=== PATIENT | male | born 1980 | race Caucasian/White ===

== ENCOUNTER 2019-12-21 13:51 | Emergency (ER) | payer OTHER ==
[2019-12-21 14:04] VITALS: RESP 18
[2019-12-21] MEDS ORDERED: KETOROLAC 60 MG/2 ML VIAL IM STA (14:16)
--- NOTE | 2019-12-21 14:16 | ED ---
Extremity Problem HPI - General Chief complaint: Extremity Problem,Nontraumatic Stated complaint: Rt heel pain Time Seen by Provider: 12/21/19 14:08 Source: patient Mode of arrival: ambulatory Limitations: no limitations - History of Present Illness Initial comments: 39-year-old male presenting today for chief complaint of right heel pain he states it is at the center of the heel extending towards the arch he states restenosis to be toes it does not hurt as bad baby steps and is healed there is significant pain. Patient denies any swelling of the feet. Denies numbness, tingling or loss of sensation. Denies calf or leg swelling. Denies injury or trauma to the foot/leg. Patient denies previous injury. Denies redness. Patient has no additional complaints. Upon arrival patient appears well. Patient has been wearing flip flops more than usual. - Related Data Home Medications Medication Instructions Recorded Confirmed Testosterone [Axiron] 1 injection IM CONTINUOUS 02/26/15 08/19/15 Ciprofloxacin HCl [Cipro] 250 mg PO Q12HR 08/19/15 08/19/15 Allergies Allergy/AdvReac Type Severity Reaction Status Date / Time amoxicillin Allergy Rash/Hives Verified 12/21/19 14:01 amoxicillin trihydrate Allergy Unknown Verified 12/21/19 14:01 [From Augmentin] latex Allergy Rash/Hives Verified 12/21/19 14:01 potassium clavulanate Allergy Unknown Verified 12/21/19 14:01 [From Augmentin] sulfamethoxazole Allergy Abdominal Verified 12/21/19 14:01 [From Bactrim] Pain. LIGHT SENSITIVITY. trimethoprim [From Bactrim] Allergy Abdominal Verified 12/21/19 14:01 Pain. LIGHT SENSITIVITY. Review of Systems ROS Statement: Those systems with pertinent positive or pertinent negative responses have been documented in the HPI. ROS Other: All systems not noted in ROS Statement are negative. Past Medical History Past Medical History: No Reported History Additional Past Medical History / Comment(s): ANEMIA History of Any Multi-Drug Resistant Organisms: None Reported Past Surgical History: Orthopedic Surgery Additional Past Surgical History / Comment(s): Nasal, hand surgery Past Psychological History: No Psychological Hx Reported Smoking Status: Never smoker Past Alcohol Use History: None Reported Past Drug Use History: None Reported General Exam - General Exam Comments Initial Comments: General: The patient is awake and alert, in no distress, and does not appear acutely ill. Eye: Pupils are equal, round and reactive to light, extra-ocular movements are intact. No nystagmus. There is normal conjunctiva bilaterally. No signs of icterus. Musculoskeletal: Normal inspection of the feet b/l, there is tenderness over the medial aspect of arch. Normal ROM, of the foot and ankle. Achilles tendon appears intact. Strength 5/5. Sensation intact. DP pulses equal bilaterally 2+. Neurological: A&O x 3. CN II-XII intact grossly, There are no obvious motor or sensory deficits. Coordination appears grossly intact. Speech is normal. Skin: Skin is warm and dry and no rashes or lesions are noted. Psychiatric: Cooperative, appropriate mood & affect, normal judgment. Limitations: no limitations Course Vital Signs 12/21/19 14:01 Temperature 98.3 F Pulse Rate 79 Respiratory 18 Rate Blood Pressure 143/94 O2 Sat by Pulse 97 Oximetry Medical Decision Making - Medical Decision Making Area of pain and history of increase use of flat footed shoes consistent with most likely diagnosis of plantar fasciitis. No trauma to the foot. patient neurovascuarly intact. recommend RICE instruction and PCP f/u. Patient is agreeable to this care plan and discharge at this time. Disposition Clinical Impression: Pain of right heel, Plantar fasciitis Disposition: HOME SELF-CARE Condition: Good Instructions (If sedation given, give patient instructions): Plantar Fasciitis (ED) Additional Instructions: Please use medication as discussed. Please follow-up with family doctor in the next 2 days. Please return to emergency room if the symptoms increase or worsen or for any other concerns. Is patient prescribed a controlled substance at d/c from ED?: No Referrals: Coy Gupta MD [Primary Care Provider] - 1-2 days Time of Disposition: 14:16
[2019-12-21 14:35] VITALS: BP 139/87; PULSE 81; TEMP 98.2
== END 2019-12-21 14:33 | disposition home or self-care (01) ==
LOC: EC 13:51
DX: M72.2 Plantar fascial fibromatosis (principal); Z79.890 Hormone replacement therapy; Z88.0 Allergy status to penicillin; Z91.040 Latex allergy status; Z88.2 Allergy status to sulfonamides
CPT/HCPCS: 99283; 96372; J1885

== ENCOUNTER 2020-04-19 22:50 | Emergency (ER) | payer OTHER ==
[2020-04-19 22:56] VITALS: RESP 16
[2020-04-19] MEDS ORDERED: SODIUM CHLORIDE 0.9% 1,000 ML IV STA (23:18)
[2020-04-19] MEDS ORDERED: ACETAMINOPHEN TAB 500 MG TAB PO STA (23:18)
[2020-04-19 23:45] LABS: Basophils # (A) 0.1 k/uL (0-0.2); Basophils % (A) 1 %; Eosinophils # (A) 0.1 k/uL (0-0.7); Eosinophils % (A) 1 %; HCT 48.7 % (39.0-53.0); HGB 16.4 gm/dL (13.0-17.5); Lymphocytes # (A) 1.9 k/uL (1.0-4.8); Lymphocytes % (A) 22 %; MCH 30.6 pg (25.0-35.0); MCHC 33.7 g/dL (31.0-37.0); Mean Platelet Volume 10.3; Monocytes # (A) 0.5 k/uL (0-1.0); Monocytes % (A) 6 %; Neutrophils # (A) 5.7 k/uL (1.3-7.7); Neutrophils % (A) 68 %; Platelet Count 210 k/uL (150-450); RBC 5.36 m/uL (4.30-5.90); RDW 12.6 % (11.5-15.5); WBC 8.3 k/uL (3.8-10.6)
[2020-04-19 23:49] LABS: Appearance,Urine Clear (Clear); Bilirubin,Urine Negative (Negative); Blood,Urine Negative (Negative); Color,Urine Yellow; Glucose,Urine (UA) Negative (Negative); Ketones,Urine 1+ (Negative); Leukocyte Esterase,Urine Negative (Negative); Nitrite,Urine Negative (Negative); PH, Urine 5.5 (5.0-8.0); Protein,Urine Negative (Negative); Specific Gravity,Urine 1.016 (1.001-1.035); Urobilinogen,Urine <2.0 mg/dL (<2.0)
--- NOTE | 2020-04-20 00:01 | XR ---
EXAMINATION TYPE: XR chest 2V DATE OF EXAM: 04/19/2020 COMPARISON: NONE HISTORY: Short of breath TECHNIQUE: FINDINGS: Heart and mediastinum are normal. Lungs are clear. Diaphragm is normal. Bony thorax appears normal. IMPRESSION: Normal chest.
[2020-04-20 00:10] LABS: ALT 54 U/L (4-49); AST 41 U/L (17-59); African American GFR (CKD) >90 (>60 ml/min/1.73 sqM); Albumin 5.2 g/dL (3.5-5.0); Alkaline Phosphatase 92 U/L (38-126); Anion Gap 11 mmol/L; Blood Urea Nitrogen 12 mg/dL (9-20); Calcium 10.3 mg/dL (8.4-10.2); Carbon Dioxide 23 mmol/L (22-30); Chloride 101 mmol/L (98-107); Glucose 104 mg/dL (74-99); Lipase 100 U/L (23-300); Magnesium 2.1 mg/dL (1.6-2.3); Non-African American GFR(CKD) >90 (>60 ml/min/1.73 sqM); Potassium 4.2 mmol/L (3.5-5.1); Sodium 135 mmol/L (137-145); Total Bilirubin 1.2 mg/dL (0.2-1.3); Total Protein 8.4 g/dL (6.3-8.2)
--- NOTE | 2020-04-20 00:40 | ED ---
Dizziness HPI - General Chief Complaint: Dizziness Stated Complaint: Abd Pain, Dizziness Time Seen by Provider: 04/19/20 22:59 Source: patient Mode of arrival: ambulatory Limitations: no limitations - History of Present Illness Initial Comments: Patient is a 40-year-old male presenting to the emergency Department with multiple complaints. Patient states he has been feeling lightheaded as well is having some nausea has been increasing over the past 3-4 days. He states his appetite has also been low and he feels like his legs are heavy. He states he was seen for this at a different hospital a few weeks ago and they told him his potassium was low. Patient is also complaining of "a weird feeling in the left side of his abdomen." He states it is not painful, he is having no vomiting. He has had one or 2 episodes the diarrhea. He is not on any new medications. He denies having a fever but states that today at arrival he does have a fever n ow. He denies any chest pain, shortness of breath. He denies any falls or trauma. He has no further complaints at this time. Upon arrival to the ER, his temperature is 100.2, blood pressures 156/111. He states he is supposed to take blood pressure medication but does not. - Related Data Home Medications Medication Instructions Recorded Confirmed Testosterone [Axiron] 1 injection IM CONTINUOUS 02/26/15 08/19/15 Ciprofloxacin HCl [Cipro] 250 mg PO Q12HR 08/19/15 08/19/15 Allergies Allergy/AdvReac Type Severity Reaction Status Date / Time amoxicillin Allergy Rash/Hives Verified 04/19/20 22:56 ciprofloxacin [From Cipro] Allergy Unknown Verified 04/19/20 22:56 latex Allergy Rash/Hives Verified 04/19/20 22:56 sulfamethoxazole Allergy Abdominal Verified 04/19/20 22:56 [From Bactrim] Pain. LIGHT SENSITIVITY. trimethoprim [From Bactrim] Allergy Abdominal Verified 04/19/20 22:56 Pain. LIGHT SENSITIVITY. Review of Systems ROS Statement: Those systems with pertinent positive or pertinent negative responses have been documented in the HPI. ROS Other: All systems not noted in ROS Statement are negative. Past Medical History Past Medical History: No Reported History Additional Past Medical History / Comment(s): ANEMIA History of Any Multi-Drug Resistant Organisms: None Reported Past Surgical History: Orthopedic Surgery Additional Past Surgical History / Comment(s): Nasal, hand surgery Past Psychological History: No Psychological Hx Reported Smoking Status: Never smoker Past Alcohol Use History: Occasional Past Drug Use History: None Reported General Exam - General Exam Comments Initial Comments: GENERAL: Patient is well-developed and well-nourished. Patient is nontoxic and in no acute distress, does look slightly diaphoretic.. HEAD: Atraumatic, normocephalic. EYES: Pupils equal round and reactive to light, extraocular movements intact, sclera anicteric, conjunctiva are normal. Eyelids were unremarkable. ENT: TMs normal, nares patent, oropharynx clear without exudates. Moist mucous membranes. NECK: Normal range of motion, supple without lymphadenopathy or JVD. LUNGS: Unlabored respirations. Breath sounds clear to auscultation bilaterally and equal. No wheezes rales or rhonchi. HEART: Regular rate and rhythm without murmurs, rubs or gallops. ABDOMEN: Soft, nontender, normoactive bowel sounds. No guarding, no rebound. No masses appreciated. : Deferred MUSCULOSKELETAL: Normal extremities with adequate strength and normal range of motion, no pitting or edema. No clubbing or cyanosis. NEUROLOGICAL: Patient is alert and oriented x 3. Motor and sensory are also intact. Cranial nerves II through XII grossly intact. Symmetrical smile. Normal speech, normal gait. PSYCH: Normal mood, normal affect. SKIN: Warm, Dry, normal turgor, no rashes or lesions noted. Limitations: no limitations Course Vital Signs 04/19/20 04/20/20 22:52 00:50 Temperature 100.2 F H 98.1 F Pulse Rate 98 81 Respiratory 16 16 Rate Blood Pressure 156/111 131/81 O2 Sat by Pulse 100 100 Oximetry Medical Decision Making - Medical Decision Making Patient is a 40-year-old male here for dizziness, nausea has been increasing ove r the past 3-4 days. He did arrive febrile to 100.2. His exam is unremarkable. Labs show a normal white count, normal lactic acid, mild dehydration. Urine is normal. To give patient 1 L fluids, Tylenol. His vital signs stabilized. Discussed with patient that his symptoms are most likely a viral illness. I did offer patient a Covid Test, however he declined at this time. He is stable for discharge. Recommended continue with Tylenol for fever, he can follow up with his PCP. He is in agreement with this plan of care. Return parameters were discussed the patient he verbalizes understanding. Case discussed with Dr. Duque. - Lab Data Result diagrams: 04/19/20 23:30 04/19/20 23:30 Lab Results 04/19/20 04/19/20 04/19/20 Range/Units 23:29 23:30 23:30 WBC 8.3 (3.8-10.6) k/uL RBC 5.36 (4.30-5.90) m/uL Hgb 16.4 (13.0-17.5) gm/dL Hct 48.7 (39.0-53.0) % MCV 91.0 (80.0-100.0) fL MCH 30.6 (25.0-35.0) pg MCHC 33.7 (31.0-37.0) g/dL RDW 12.6 (11.5-15.5) % Plt Count 210 (150-450) k/uL Neutrophils % 68 % Lymphocytes % 22 % Monocytes % 6 % Eosinophils % 1 % Basophils % 1 % Neutrophils # 5.7 (1.3-7.7) k/uL Lymphocytes # 1.9 (1.0-4.8) k/uL Monocytes # 0.5 (0-1.0) k/uL Eosinophils # 0.1 (0-0.7) k/uL Basophils # 0.1 (0-0.2) k/uL Sodium 135 L (137-145) mmol/L Potassium 4.2 (3.5-5.1) mmol/L Chloride 101 (98-107) mmol/L Carbon Dioxide 23 (22-30) mmol/L Anion Gap 11 mmol/L BUN 12 (9-20) mg/dL Creatinine 0.95 (0.66-1.25) mg/dL Est GFR (CKD-EPI)AfAm >90 (>60 ml/min/1.73 sqM) Est GFR (CKD-EPI)NonAf >90 (>60 ml/min/1.73 sqM) Glucose 104 H (74-99) mg/dL Plasma Lactic Acid Christopher (0.7-2.0) mmol/L Calcium 10.3 H (8.4-10.2) mg/dL Magnesium 2.1 (1.6-2.3) mg/dL Total Bilirubin 1.2 (0.2-1.3) mg/dL AST 41 (17-59) U/L ALT 54 H (4-49) U/L Alkaline Phosphatase 92 (38-126) U/L Total Protein 8.4 H (6.3-8.2) g/dL Albumin 5.2 H (3.5-5.0) g/dL Lipase 100 (23-300) U/L Urine Color Yellow Urine Appearance Clear (Clear) Urine pH 5.5 (5.0-8.0) Ur Specific [place] 1.016 (1.001-1.035) Urine Protein Negative (Negative) Urine Glucose (UA) Negative (Negative) Urine Ketones 1+ H (Negative) Urine Blood Negative (Negative) Urine Nitrite Negative (Negative) Urine Bilirubin Negative (Negative) Urine Urobilinogen <2.0 (<2.0) mg/dL Ur Leukocyte Esterase Negative (Negative) 04/19/20 Range/Units 23:30 WBC (3.8-10.6) k/uL RBC (4.30-5.90) m/uL Hgb (13.0-17.5) gm/dL Hct (39.0-53.0) % MCV (80.0-100.0) fL MCH (25.0-35.0) pg MCHC (31.0-37.0) g/dL RDW (11.5-15.5) % Plt Count (150-450) k/uL Neutrophils % % Lymphocytes % % Monocytes % % Eosinophils % % Basophils % % Neutrophils # (1.3-7.7) k/uL Lymphocytes # (1.0-4.8) k/uL Monocytes # (0-1.0) k/uL Eosinophils # (0-0.7) k/uL Basophils # (0-0.2) k/uL Sodium (137-145) mmol/L Potassium (3.5-5.1) mmol/L Chloride (98-107) mmol/L Carbon Dioxide (22-30) mmol/L Anion Gap mmol/L BUN (9-20) mg/dL Creatinine (0.66-1.25) mg/dL Est GFR (CKD-EPI)AfAm (>60 ml/min/1.73 sqM) Est GFR (CKD-EPI)NonAf (>60 ml/min/1.73 sqM) Glucose (74-99) mg/dL Plasma Lactic Acid Christopher 1.4 (0.7-2.0) mmol/L Calcium (8.4-10.2) mg/dL Magnesium (1.6-2.3) mg/dL Total Bilirubin (0.2-1.3) mg/dL AST (17-59) U/L ALT (4-49) U/L Alkaline Phosphatase (38-126) U/L Total Protein (6.3-8.2) g/dL Albumin (3.5-5.0) g/dL Lipase (23-300) U/L Urine Color Urine Appearance (Clear) Urine pH (5.0-8.0) Ur Specific [place] (1.001-1.035) Urine Protein (Negative) Urine Glucose (UA) (Negative) Urine Ketones (Negative) Urine Blood (Negative) Urine Nitrite (Negative) Urine Bilirubin (Negative) Urine Urobilinogen (<2.0) mg/dL Ur Leukocyte Esterase (Negative) Disposition Clinical Impression: Viral illness, Nausea Disposition: HOME SELF-CARE Condition: Stable Instructions (If sedation given, give patient instructions): Viral Syndrome (ED) Additional Instructions: Please return to the Emergency Department if symptoms worsen or any other concerns. Workup today was normal, mild dehydration. May take Tylenol for continued fever. Increased fluid intake. Follow up with PCP. Is patient prescribed a controlled substance at d/c from ED?: No Referrals: Coy Gupta MD [Primary Care Provider] - 1-2 days
[2020-04-20 00:51] VITALS: BP 131/81; PULSE 81; TEMP 98.1
== END 2020-04-20 01:20 | disposition home or self-care (01) ==
LOC: EC 22:50
DX: B34.9 Viral infection, unspecified (principal); R11.0 Nausea; Z53.29 Procedure and treatment not carried out because of patient's decision for other reasons; Z88.0 Allergy status to penicillin; Z88.1 Allergy status to other antibiotic agents; Z88.2 Allergy status to sulfonamides; Z91.040 Latex allergy status
CPT/HCPCS: 36415; 71046; 80053; 81003; 83605; 83690; 83735; 85025; 96360; 99284

== ENCOUNTER → 2020-07-23 | Outpatient (CLI) | payer OTHER | END | disposition home or self-care (01) | LOC: LABWHC1 12:24 | PROVIDERS: ATTEND Psychiatry & Neurology Neurology | DX: E29.1 Testicular hypofunction (principal); R53.1 Weakness; R20.0 Anesthesia of skin; R20.2 Paresthesia of skin | CPT/HCPCS: 36415; 84207 ==

== ENCOUNTER → 2020-08-11 | Outpatient (CLI) | payer OTHER ==
--- NOTE | 2020-08-11 16:57 | CT ---
EXAMINATION TYPE: CT sinus wo con DATE OF EXAM: 08/11/2020 COMPARISON: CT 01/16/2015 HISTORY: chronic sinusitis CT DLP: 648 mGycm. Automated Exposure Control for Dose Reduction was Utilized. TECHNIQUE: CT scan of the sinuses is performed without contrast, axial images are obtained, coronal r eformatted images are also reviewed. FINDINGS: The paranasal sinuses including the frontal, ethmoid, sphenoid, and maxillary sinuses bila terally are well-aerated without abnormal opacification with the exception of minimal inflammatory ch moshe in the sphenoid sinus on the left is stable. The ostiomeatal complex is patent bilaterally on t he coronal images. Deviated nasal septum to the right is again seen, metallic density in the subcutan eous fat over the left frontal scalp superior to the left orbit is stable. Visualized portion of mastoid air cells show no abnormal opacification. The globes are intact bilate rally. IMPRESSION: The sinuses are stable as described and the ostiomeatal complex is patent bilaterally.
== END | disposition home or self-care (01) ==
LOC: RADCTMAIN 15:46
PROVIDERS: ATTEND Otolaryngology Facial Plastic Surgery
DX: R51.9 Headache, unspecified (principal)
CPT/HCPCS: 70486

== ENCOUNTER 2020-09-06 23:20 | Emergency (ER) | payer OTHER ==
[2020-09-06 23:24] VITALS: RESP 18
[2020-09-07] MEDS ORDERED: SODIUM CHLORIDE 0.9% 1,000 ML IV STA (00:02)
--- NOTE | 2020-09-07 00:04 | ED ---
Weakness HPI - General Chief complaint: Dizziness Stated complaint: Leg Numbness Time Seen by Provider: 09/06/20 23:30 Source: patient, RN notes reviewed, old records reviewed Mode of arrival: ambulatory Limitations: no limitations - History of Present Illness Initial comments: This is a 32-year-old male DF for evaluation patient Dese for evaluation of weakness bilateral lower extremity weakness. Patient has persistent lower extremity weakness tingling and not feeling appropriately here in the ER no recent injury symptoms for 3 days. No issues of bowel or bladder, patient has otherwise no other new significant complaints. He has had similar issues in the past without known acute disease a diagnosis. Patient does have high blood pressure but takes no other medications MD Complaint: generalized weakness, difficulty walking -: days(s) (3) Location: LLE, RLE Severity: mild Severity scale (1-10): 3 Quality: numbness, aching Consistency: constant Improves with: none Worsens with: none Context: history of similar Associated Symptoms: denies other symptoms - Related Data Home Medications Medication Instructions Recorded Confirmed Testosterone [Axiron] 1 injection IM CONTINUOUS 02/26/15 08/19/15 Ciprofloxacin HCl [Cipro] 250 mg PO Q12HR 08/19/15 08/19/15 Allergies Allergy/AdvReac Type Severity Reaction Status Date / Time amoxicillin Allergy Rash/Hives Verified 09/06/20 23:23 ciprofloxacin [From Cipro] Allergy Unknown Verified 09/06/20 23:23 latex Allergy Rash/Hives Verified 09/06/20 23:23 sulfamethoxazole Allergy Abdominal Verified 09/06/20 23:23 [From Bactrim] Pain. LIGHT SENSITIVITY. trimethoprim [From Bactrim] Allergy Abdominal Verified 09/06/20 23:23 Pain. LIGHT SENSITIVITY. Review of Systems ROS Statement: Those systems with pertinent positive or pertinent negative responses have been documented in the HPI. ROS Other: All systems not noted in ROS Statement are negative. Past Medical History Past Medical History: No Reported History Additional Past Medical History / Comment(s): ANEMIA History of Any Multi-Drug Resistant Organisms: None Reported Past Surgical History: Orthopedic Surgery Additional Past Surgical History / Comment(s): Nasal, hand surgery Past Psychological History: No Psychological Hx Reported Smoking Status: Never smoker Past Alcohol Use History: Occasional Past Drug Use History: None Reported General Exam - General Exam Comments Initial Comments: NIH of 0 with no focal neurological deficits Limitations: no limitations General appearance: alert, in no apparent distress Head exam: Present: atraumatic, normocephalic, normal inspection Eye exam: Present: normal appearance, PERRL, EOMI. Absent: scleral icterus, conjunctival injection, periorbital swelling ENT exam: Present: normal exam, mucous membranes moist Neck exam: Present: normal inspection. Absent: tenderness, meningismus, lymphadenopathy Respiratory exam: Present: normal lung sounds bilaterally. Absent: respiratory distress, wheezes, rales, rhonchi, stridor Cardiovascular Exam: Present: regular rate, normal rhythm, normal heart sounds. Absent: systolic murmur, diastolic murmur, rubs, gallop, clicks GI/Abdominal exam: Present: soft, normal bowel sounds. Absent: distended, tenderness, guarding, rebound, rigid Extremities exam: Present: normal inspection, full ROM, normal capillary refill. Absent: tenderness, pedal edema, joint swelling, calf tenderness Back exam: Present: normal inspection Neurological exam: Present: alert, oriented X3, CN II-XII intact Psychiatric exam: Present: normal affect, normal mood Skin exam: Present: warm, dry, intact, normal color. Absent: rash Course Vital Signs 09/06/20 23:22 Temperature 98.5 F Pulse Rate 101 H Respiratory 18 Rate Blood Pressure 143/84 O2 Sat by Pulse 98 Oximetry - Reevaluation(s) Reevaluation #1: 09/07/20 01:50 Medical record is reviewed Reevaluation #2: 09/07/20 01:50 Patient is able to ambulate 09/07/20 01:51 Repeat neuro exam shows good strength Reevaluation #3: 09/07/20 01:51 Patient informed of results and questions answered EKG Findings - EKG Comments: EKG Findings:: EKG shows sinus rhythm 80 TX 138 QRS 104 QTc 452 Medical Decision Making - Medical Decision Making 40 male for evaluation of weakness. No acute cause found of symptoms here in the ER. Patient given outpatient follow-up for his primary care possible referral [facility] a neurological evaluation - Lab Data Result diagrams: 09/07/20 00:12 09/07/20 00:12 Lab Results 09/07/20 09/07/20 09/07/20 Range/Units 00:12 00:12 00:12 WBC 9.1 (3.8-10.6) k/uL RBC 5.18 (4.30-5.90) m/uL Hgb 15.6 (13.0-17.5) gm/dL Hct 46.9 (39.0-53.0) % MCV 90.5 (80.0-100.0) fL MCH 30.1 (25.0-35.0) pg MCHC 33.3 (31.0-37.0) g/dL RDW 12.2 (11.5-15.5) % Plt Count 221 (150-450) k/uL MPV 9.5 Neutrophils % 63 % Lymphocytes % 26 % Monocytes % 6 % Eosinophils % 3 % Basophils % 1 % Neutrophils # 5.7 (1.3-7.7) k/uL Lymphocytes # 2.4 (1.0-4.8) k/uL Monocytes # 0.6 (0-1.0) k/uL Eosinophils # 0.3 (0-0.7) k/uL Basophils # 0.1 (0-0.2) k/uL D-Dimer (<0.60) mg/L FEU Sodium 140 (137-145) mmol/L Potassium 4.3 (3.5-5.1) mmol/L Chloride 104 (98-107) mmol/L Carbon Dioxide 28 (22-30) mmol/L Anion Gap 8 mmol/L BUN 16 (9-20) mg/dL Creatinine 0.84 (0.66-1.25) mg/dL Est GFR (CKD-EPI)AfAm >90 (>60 ml/min/1.73 sqM) Est GFR (CKD-EPI)NonAf >90 (>60 ml/min/1.73 sqM) Glucose 87 (74-99) mg/dL Calcium 10.0 (8.4-10.2) mg/dL Phosphorus 3.5 (2.5-4.5) mg/dL Magnesium 2.1 (1.6-2.3) mg/dL Total Bilirubin 0.6 (0.2-1.3) mg/dL AST 37 (17-59) U/L ALT 58 H (4-49) U/L Alkaline Phosphatase 83 (38-126) U/L Creatine Kinase 80 (55-170) U/L CK-MB (CK-2) <0.2 (0.0-2.4) ng/mL Troponin I <0.012 (0.000-0.034) ng/mL C-Reactive Protein 12.2 H (<10.0) mg/L Total Protein 8.1 (6.3-8.2) g/dL Albumin 4.9 (3.5-5.0) g/dL 09/07/20 Range/Units 00:12 WBC (3.8-10.6) k/uL RBC (4.30-5.90) m/uL Hgb (13.0-17.5) gm/dL Hct (39.0-53.0) % MCV (80.0-100.0) fL MCH (25.0-35.0) pg MCHC (31.0-37.0) g/dL RDW (11.5-15.5) % Plt Count (150-450) k/uL MPV Neutrophils % % Lymphocytes % % Monocytes % % Eosinophils % % Basophils % % Neutrophils # (1.3-7.7) k/uL Lymphocytes # (1.0-4.8) k/uL Monocytes # (0-1.0) k/uL Eosinophils # (0-0.7) k/uL Basophils # (0-0.2) k/uL D-Dimer 0.35 (<0.60) mg/L FEU Sodium (137-145) mmol/L Potassium (3.5-5.1) mmol/L Chloride (98-107) mmol/L Carbon Dioxide (22-30) mmol/L Anion Gap mmol/L BUN (9-20) mg/dL Creatinine (0.66-1.25) mg/dL Est GFR (CKD-EPI)AfAm (>60 ml/min/1.73 sqM) Est GFR (CKD-EPI)NonAf (>60 ml/min/1.73 sqM) Glucose (74-99) mg/dL Calcium (8.4-10.2) mg/dL Phosphorus (2.5-4.5) mg/dL Magnesium (1.6-2.3) mg/dL Total Bilirubin (0.2-1.3) mg/dL AST (17-59) U/L ALT (4-49) U/L Alkaline Phosphatase (38-126) U/L Creatine Kinase (55-170) U/L CK-MB (CK-2) (0.0-2.4) ng/mL Troponin I (0.000-0.034) ng/mL C-Reactive Protein (<10.0) mg/L Total Protein (6.3-8.2) g/dL Albumin (3.5-5.0) g/dL - Radiology Data Radiology results: report reviewed (CT abdomen and pelvis and lumbosacral spine negative for acute disease), image reviewed Disposition Clinical Impression: Weakness, Leg pain Disposition: [facility] Condition: Good Instructions (If sedation given, give patient instructions): Weakness (ED) Is patient prescribed a controlled substance at d/c from ED?: No Referrals: Coy Gupta MD [Primary Care Provider] - 1-2 days
[2020-09-07 00:41] LABS: Basophils # (A) 0.1 k/uL (0-0.2); Basophils % (A) 1 %; Eosinophils # (A) 0.3 k/uL (0-0.7); Eosinophils % (A) 3 %; HCT 46.9 % (39.0-53.0); HGB 15.6 gm/dL (13.0-17.5); Lymphocytes # (A) 2.4 k/uL (1.0-4.8); Lymphocytes % (A) 26 %; MCH 30.1 pg (25.0-35.0); MCHC 33.3 g/dL (31.0-37.0); MCV 90.5 fL (80.0-100.0); Mean Platelet Volume 9.5; Monocytes # (A) 0.6 k/uL (0-1.0); Monocytes % (A) 6 %; Neutrophils # (A) 5.7 k/uL (1.3-7.7); Neutrophils % (A) 63 %; Platelet Count 221 k/uL (150-450); RBC 5.18 m/uL (4.30-5.90); RDW 12.2 % (11.5-15.5); WBC 9.1 k/uL (3.8-10.6)
--- NOTE | 2020-09-07 00:56 | CT ---
EXAMINATION TYPE: CT abdomen pelvis wo con DATE OF EXAM: 09/07/2020 COMPARISON: 08/01/2014 HISTORY: pain CT DLP: 1270.4 mGycm Automated exposure control for dose reduction was used. Images obtained from the diaphragm to the floor the pelvis with no contrast. Lung bases are clear. There is no pleural effusion. Heart size is normal. Liver spleen stomach pancreas appear normal. Bile ducts are not dilated. Gallbladder appears normal. There is no adrenal mass. Kidneys show normal size and contour. There is no hydronephrosis. Ureters a re not dilated. Appendix is posterior and appears normal. There is no retroperitoneal adenopathy. Roland dder distends smoothly. There is no inguinal hernia. There is no free fluid in the pelvis. There is no sign of a pelvic mass. There is no mesenteric edema. There is no ascites or free air. There is no bowel obstruction. Lumbar vertebra have normal alignment. Disc spaces are fairly normal. There is no compression fractur e. Bony pelvis is intact. The hip joints are intact. IMPRESSION: Negative exam. Normal appendix. No adverse change compared to old exam. There is clearing of the righ t renal calculus compared to old exam.
[2020-09-07 01:16] LABS: ALT 58 U/L (4-49); AST 37 U/L (17-59); African American GFR (CKD) >90 (>60 ml/min/1.73 sqM); Albumin 4.9 g/dL (3.5-5.0); Alkaline Phosphatase 83 U/L (38-126); Anion Gap 8 mmol/L; Blood Urea Nitrogen 16 mg/dL (9-20); C Reactive Protein 12.2 mg/L (<10.0); Carbon Dioxide 28 mmol/L (22-30); Chloride 104 mmol/L (98-107); Creatine Kinase 80 U/L (55-170); Glucose 87 mg/dL (74-99); Magnesium 2.1 mg/dL (1.6-2.3); Non-African American GFR(CKD) >90 (>60 ml/min/1.73 sqM); Phosphorus 3.5 mg/dL (2.5-4.5); Potassium 4.3 mmol/L (3.5-5.1); Sodium 140 mmol/L (137-145); Total Bilirubin 0.6 mg/dL (0.2-1.3); Total Protein 8.1 g/dL (6.3-8.2)
[2020-09-07 01:31] LABS: Creatine Kinase MB <0.2 ng/mL (0.0-2.4); Troponin I <0.012 ng/mL (0.000-0.034)
[2020-09-07 02:38] VITALS: BP 139/82; PULSE 95; TEMP 98.2
== END 2020-09-07 02:38 | disposition other institution (70) ==
LOC: EC 23:20
DX: R53.1 Weakness (principal); M79.606 Pain in leg, unspecified; R20.0 Anesthesia of skin; R20.2 Paresthesia of skin; R42 Dizziness and giddiness; R26.2 Difficulty in walking, not elsewhere classified; D64.9 Anemia, unspecified; Z79.899 Other long term (current) drug therapy; Z88.0 Allergy status to penicillin; Z91.040 Latex allergy status; Z88.1 Allergy status to other antibiotic agents; Z88.2 Allergy status to sulfonamides; Z87.442 Personal history of urinary calculi
CPT/HCPCS: 36415; 74176; 80053; 82550; 82553; 83735; 84100; 84484; 85025; 85379; 86140; 93005; 99285

== ENCOUNTER 2020-12-27 14:51 | Emergency (ER) | payer OTHER ==
[2020-12-27 15:13] VITALS: TEMP 97.9
--- NOTE | 2020-12-27 15:17 | ED ---
General Adult HPI - General Chief complaint: Neuro Symptoms/Deficit Stated complaint: L arm & leg numbness Time Seen by Provider: 12/27/20 15:15 Source: patient Mode of arrival: wheelchair Limitations: no limitations - History of Present Illness Initial comments: Yo is a 40-year-old male who presents to the emergency department today for evaluation of headache and left arm numbness. Patient reports that symptoms began yesterday, he attempted to sleep off the headache but it persisted today. He also states that he feels like his arm is heavy, not working right and feels numb. He states his sensation just feels different in the left arm the right. He denies any vision changes, nausea or vomiting. Denies any history of hypertension hyperlipidemia. Initially patient denied any history of anything similar however after agreeing to be admitted hospital patient provided further history that symptoms began in April after being treated for URI with referral. Patient states that he began experiencing headaches, chest pain, palpitations and numbness in the lower extremities. Patient has been seen by 3 neurologists he has had MRI of the brain and cervical spine and lumbar spine. He has had EMGs the legs. He's also been seen by cardiology and had cardiac monitoring, echo and carotid Dopplers. Patient states is been no findings in his workup. He states that he came to the ER today because he usually goes numb in all extremities at the same time or just legs never just the arm or just the left side like he was feeling since . - Related Data Home Medications Medication Instructions Recorded Confirmed Testosterone Cypionate 200 mg IM Q14D 12/27/20 12/27/20 [Depo-Testosterone] Allergies Allergy/AdvReac Type Severity Reaction Status Date / Time amoxicillin Allergy Rash/Hives Verified 12/27/20 17:22 ciprofloxacin [From Cipro] Allergy Unknown Verified 12/27/20 17:22 latex Allergy Rash/Hives Verified 12/27/20 17:22 sulfamethoxazole Allergy Abdominal Verified 12/27/20 17:22 [From Bactrim] Pain. LIGHT SENSITIVITY. trimethoprim [From Bactrim] Allergy Abdominal Verified 12/27/20 17:22 Pain. LIGHT SENSITIVITY. Review of Systems ROS Statement: Those systems with pertinent positive or pertinent negative responses have been documented in the HPI. ROS Other: All systems not noted in ROS Statement are negative. Past Medical History Past Medical History: No Reported History Additional Past Medical History / Comment(s): ANEMIA History of Any Multi-Drug Resistant Organisms: None Reported Past Surgical History: Orthopedic Surgery Additional Past Surgical History / Comment(s): Nasal, hand surgery Past Psychological History: No Psychological Hx Reported Smoking Status: Never smoker Past Alcohol Use History: Occasional Past Drug Use History: None Reported General Exam - General Exam Comments Initial Comments: Physical Exam GENERAL: Patient is well-developed and well-nourished. Patient is nontoxic and well-hydrated and is in no distress. HENT: Normocephalic, Atraumatic. EYES: PERRL, EOMI PULMONARY: Unlabored respirations. No audible rales rhonchi or wheezing was noted. CARDIOVASCULAR: There is a regular rate and rhythm without any murmurs gallops or rubs. ABDOMEN: Soft and nontender with normal bowel sounds. SKIN: Skin is clear with no lesions or rashes and otherwise unremarkable. : Deferred NEUROLOGIC: Patient is alert and oriented x3. Moving all extremities spontaneously NIH 1 subjective change in sensation left arm MUSCULOSKELETAL: Normal extremities with adequate strength and full range of motion. No lower extremity swelling or edema. No calf tenderness. No observable weakness in left arm or leg PSYCHIATRIC: Normal psychiatric evaluation. Limitations: no limitations Course Vital Signs 12/27/20 12/27/20 12/27/20 15:10 16:00 17:20 Temperature 97.9 F 97.9 F Pulse Rate 88 87 83 Respiratory 16 18 18 Rate Blood Pressure 169/95 135/74 140/83 O2 Sat by Pulse 97 99 99 Oximetry 12/27/20 12/27/20 12/27/20 17:33 18:02 18:32 Temperature Pulse Rate 84 96 96 Respiratory 18 18 18 Rate Blood Pressure 134/87 142/94 146/80 O2 Sat by Pulse 99 95 95 Oximetry 12/27/20 12/27/20 19:01 19:29 Temperature 97.9 F Pulse Rate 98 84 Respiratory 18 18 Rate Blood Pressure 155/99 132/91 O2 Sat by Pulse 95 95 Oximetry EKG Findings - EKG Comments: EKG Findings:: EKG was obtained as part of the stroke workup, EKG was obtained at 1520, rate is 81 rhythm sinus with right bundle branch block, no acute ST elevations or depressions no evidence of ischemia or infarction. Medical Decision Making - Medical Decision Making The patient was seen and evaluated, history is obtained from the patient and at bedside Initially patient reported numbness in the left arm and leg since yesterday with no history of such however after negative workup and plan for admission patient expressed that he has been experiencing numbness since April, he's been seen by multiple neurologists, back tender fourdrinier he has had MRIs carotid Doppler echo and EMGs Patient was willing to stay in observation for evaluation inpatient by neurology however he is not willing to have a COVID swab and this time. Patient understands that with a change in condition and new weakness in the arm he should stay as he could be having a stroke, however considering he has experienced similar symptoms repeatedly he would prefer to leave The patient has decided to leave against medical advice because he doesnt want a COVID swab, he doesnt feel his symptoms are acute The patient has adequate capacity to make medical decisions. The patient refuses hospital admission and wants to be discharged. The risks have been explained to the patient, including paralysis worsening illness, chronic pain, permanent disability and . The benefits of workup/admission have also been explained, including the availability and proximity of nurses, physicians, monitoring, diagnostic testing, treatment and inpatient neurology evaluation The patient was able to understand and state the risks and benefits of hospital admission. The patient the opportunity to ask questions about their medical condition. The patient was treated to the extent that they would allow and knows that they may return for care at any time. - Lab Data Result diagrams: 12/27/20 15:33 12/27/20 15:33 Lab Results 12/27/20 12/27/20 12/27/20 Range/Units 15:33 15:33 15:33 WBC 7.2 (3.8-10.6) k/uL RBC 5.49 (4.30-5.90) m/uL Hgb 16.6 (13.0-17.5) gm/dL Hct 47.7 (39.0-53.0) % MCV 86.8 (80.0-100.0) fL MCH 30.2 (25.0-35.0) pg MCHC 34.8 (31.0-37.0) g/dL RDW 11.9 (11.5-15.5) % Plt Count 190 (150-450) k/uL MPV 10.2 Neutrophils % 73 % Lymphocytes % 22 % Monocytes % 3 % Eosinophils % 1 % Basophils % 0 % Neutrophils # 5.2 (1.3-7.7) k/uL Lymphocytes # 1.6 (1.0-4.8) k/uL Monocytes # 0.3 (0-1.0) k/uL Eosinophils # 0.1 (0-0.7) k/uL Basophils # 0.0 (0-0.2) k/uL PT 10.4 (9.0-12.0) sec INR 1.0 (<1.2) APTT 23.2 (22.0-30.0) sec Sodium 141 (137-145) mmol/L Potassium 4.0 (3.5-5.1) mmol/L Chloride 105 (98-107) mmol/L Carbon Dioxide 26 (22-30) mmol/L Anion Gap 10 mmol/L BUN 15 (9-20) mg/dL Creatinine 0.85 (0.66-1.25) mg/dL Est GFR (CKD-EPI)AfAm >90 (>60 ml/min/1.73 sqM) Est GFR (CKD-EPI)NonAf >90 (>60 ml/min/1.73 sqM) Glucose 121 H (74-99) mg/dL Calcium 10.3 H (8.4-10.2) mg/dL Total Bilirubin 0.7 (0.2-1.3) mg/dL AST 37 (17-59) U/L ALT 52 H (4-49) U/L Alkaline Phosphatase 97 (38-126) U/L Total Protein 7.9 (6.3-8.2) g/dL Albumin 4.9 (3.5-5.0) g/dL Disposition Clinical Impression: Arm paresthesia, left, Headache Disposition: Left Against Medical Advice Is patient prescribed a controlled substance at d/c from ED?: No Referrals: Coy Gupta MD [Primary Care Provider] - 1-2 days
[2020-12-27] MEDS ORDERED: SODIUM CHLORIDE 0.9% 1,000 ML IV STA (15:23)
--- NOTE | 2020-12-27 15:57 | CT ---
EXAMINATION TYPE: CT brain wo con for TPA DATE OF EXAM: 12/27/2020 COMPARISON: 01/16/2015 HISTORY: left sided arm numbness CT DLP: 1162.4 mGycm Automated exposure control for dose reduction was used. Ventricles and sulci appear normal. There is no mass effect nor midline shift. There is no sign of in tracranial hemorrhage. The calvarium is intact. Skull base is intact. IMPRESSION: Normal unenhanced head CT scan. No change.
--- NOTE | 2020-12-27 15:58 | XR ---
EXAMINATION TYPE: XR chest 2V DATE OF EXAM: 12/27/2020 COMPARISON: 04/19/2020 HISTORY: Short of breath TECHNIQUE: 2 views FINDINGS: Heart and mediastinum are normal. Lungs are clear. Diaphragm is normal. Bony thorax appears normal. There are chest leads. IMPRESSION: Normal chest. No change.
[2020-12-27 16:01] LABS: Basophils % (A) 0 %; Eosinophils # (A) 0.1 k/uL (0-0.7); Eosinophils % (A) 1 %; HCT 47.7 % (39.0-53.0); HGB 16.6 gm/dL (13.0-17.5); Lymphocytes # (A) 1.6 k/uL (1.0-4.8); Lymphocytes % (A) 22 %; MCH 30.2 pg (25.0-35.0); MCHC 34.8 g/dL (31.0-37.0); MCV 86.8 fL (80.0-100.0); Mean Platelet Volume 10.2; Monocytes # (A) 0.3 k/uL (0-1.0); Monocytes % (A) 3 %; Neutrophils # (A) 5.2 k/uL (1.3-7.7); Neutrophils % (A) 73 %; Platelet Count 190 k/uL (150-450); RBC 5.49 m/uL (4.30-5.90); RDW 11.9 % (11.5-15.5); WBC 7.2 k/uL (3.8-10.6)
[2020-12-27 16:07] VITALS: RESP 18
[2020-12-27 16:18] LABS: ALT 52 U/L (4-49); AST 37 U/L (17-59); African American GFR (CKD) >90 (>60 ml/min/1.73 sqM); Albumin 4.9 g/dL (3.5-5.0); Alkaline Phosphatase 97 U/L (38-126); Anion Gap 10 mmol/L; Blood Urea Nitrogen 15 mg/dL (9-20); Calcium 10.3 mg/dL (8.4-10.2); Carbon Dioxide 26 mmol/L (22-30); Chloride 105 mmol/L (98-107); Glucose 121 mg/dL (74-99); Non-African American GFR(CKD) >90 (>60 ml/min/1.73 sqM); Sodium 141 mmol/L (137-145); Total Bilirubin 0.7 mg/dL (0.2-1.3); Total Protein 7.9 g/dL (6.3-8.2)
[2020-12-27 16:24] LABS: Partial Thromboplastin Time 23.2 sec (22.0-30.0); Prothrombin Time 10.4 sec (9.0-12.0)
[2020-12-27] MEDS ORDERED: diphenhydrAMINE 50 MG/ML 1 ML VIAL IVP STA (16:36)
[2020-12-27] MEDS ORDERED: ASPIRIN 81 MG PO STA (16:36)
[2020-12-27] MEDS ORDERED: METOCLOPRAMIDE 5 MG/ML 2 ML VIAL IVP STA (16:36)
[2020-12-27] MEDS ORDERED: NALOXONE 0.4 MG/ML 1 ML VIAL IV PRN (18:21)
[2020-12-27 19:35] VITALS: BP 132/91; PULSE 84
== END 2020-12-27 19:34 | disposition left against medical advice (07) ==
LOC: EC 14:51 → UNDOADMOB 18:26 → 6NMEDSUR 18:26 → EC 19:34
DX: R20.0 Anesthesia of skin (principal); R51.9 Headache, unspecified; R07.9 Chest pain, unspecified; R00.2 Palpitations; Z88.1 Allergy status to other antibiotic agents; Z88.2 Allergy status to sulfonamides; Z91.040 Latex allergy status
CPT/HCPCS: 36415; 70450; 71046; 80053; 85025; 85610; 85730; 93005; 96360; 96361; 99285

== ENCOUNTER → 2020-12-31 | Outpatient (CLI) | payer OTHER ==
[2021-01-01 02:27] LABS: ALT 62 U/L (10-49); AST 39 U/L (14-35); African American GFR (CKD) 98.2 (60.0-200.0); Albumin/Globulin Ratio 1.69 (1.60-3.17); Alkaline Phosphatase 97 U/L (41-126); BUN/Creat Ratio 15.45 Ratio (12.00-20.00); Carbon Dioxide 25.4 mmol/L (21.6-31.8); Chloride 107 mmol/L (96-109); Creatine Kinase 116 U/L (35-257); Globulin 2.9 g/dL (1.6-3.3); Glucose 117 mg/dL (70-110); Iron 98 ug/dL (65-175); Non-African American GFR(CKD) 84.7 (60.0-200.0); Potassium 4.2 mmol/L (3.5-5.5); Rheumatoid Factor, Qnt <4 IU/mL (0-15); Sodium 143 mmol/L (135-145); Total Bilirubin 0.7 mg/dL (0.3-1.2); Total Protein 7.8 g/dL (6.2-8.2)
== END | disposition home or self-care (01) ==
LOC: LABWHC1 15:38
PROVIDERS: ATTEND Physician Assistant
DX: G62.9 Polyneuropathy, unspecified (principal); M13.0 Polyarthritis, unspecified; E11.9 Type 2 diabetes mellitus without complications; I10 Essential (primary) hypertension; B89 Unspecified parasitic disease
CPT/HCPCS: 36415; 80053; 82175; 82306; 82550; 82570; 83540; 83655; 83825; 84403; 85652; 86038; 86431

== ENCOUNTER → 2021-01-01 | Outpatient (CLI) | payer OTHER ==
--- NOTE | 2021-01-02 03:32 | MR ---
EXAMINATION TYPE: MR brain wo con DATE OF EXAM: 01/01/2021 COMPARISON: 07/29/2014 HISTORY: Migraine, lightheaded, history of bilateral weakness and numbness. Multiplanar multiecho imaging of the brain with no contrast. Ventricles and sulci appear fairly normal. There is no mass effect nor midline shift. There is no sig n of intracranial hemorrhage. Diffusion images show no sign of an acute infarct. The palomares-white matte r structures have fairly normal signal pattern. There is no evidence of cerebral edema. Brainstem is intact. Sclerosis and appears normal. Sella turcica appears normal. There is no evidence of orbital m ass. IMPRESSION: Negative MR scan of the brain. No change.
--- NOTE | 2021-01-02 04:03 | MR ---
EXAMINATION TYPE: MR angio head wo con DATE OF EXAM: 01/01/2021 COMPARISON: None HISTORY: Migraine, lightheaded, history of bilateral weakness and numbness. MR angiographic images were obtained of the intracerebral arterial circulation. There is arterial flow in the anterior middle and posterior cerebral arteries. There is arterial flow in the vertebrobasilar artery system. I see no evidence of hemodynamic stenosis. There is no evidenc e of intracranial aneurysm. There is flow in the right posterior communicating artery. IMPRESSION: Negative MR angiogram of the brain. No evidence of arterial stenosis. No aneurysm.
== END | disposition home or self-care (01) ==
LOC: RADMRIMAIN 20:26
PROVIDERS: ATTEND Physician Assistant
DX: G43.909 Migraine, unspecified, not intractable, without status migrainosus (principal); R20.0 Anesthesia of skin; R29.898 Other symptoms and signs involving the musculoskeletal system
CPT/HCPCS: 70544; 70551

== ENCOUNTER → 2021-01-12 | Outpatient (CLI) | payer OTHER ==
--- NOTE | 2021-01-12 16:48 | CT ---
EXAMINATION TYPE: CT facial bones wo con DATE OF EXAM: 01/12/2021 COMPARISON: CT sinus 08/11/2020 HISTORY: chronic sinus congestion CT DLP: 602 mGycm Automated exposure control for dose reduction was used. TECHNIQUE: CT scan of the sinuses is performed without contrast, axial images are obtained, coronal r eformatted images are also reviewed. FINDINGS: The paranasal sinuses including the frontal, ethmoid, sphenoid, and maxillary sinuses bila terally are well-aerated without abnormal opacification. The ostiomeatal complex is patent bilateral ly on the coronal images. Visualized portion of mastoid air cells show no abnormal opacification. The globes are intact bilate rally. IMPRESSION: The sinuses are clear and the ostiomeatal complex is patent bilaterally.
== END | disposition home or self-care (01) ==
LOC: RADCTMAIN 14:39
PROVIDERS: ATTEND Family Medicine
DX: R09.89 Other specified symptoms and signs involving the circulatory and respiratory systems (principal)
CPT/HCPCS: 70486

== ENCOUNTER → 2021-01-12 | Outpatient (CLI) | payer OTHER | END | disposition home or self-care (01) | LOC: LABWHC1 13:29 | PROVIDERS: ATTEND Family Medicine | DX: E11.9 Type 2 diabetes mellitus without complications (principal); I10 Essential (primary) hypertension; B89 Unspecified parasitic disease | CPT/HCPCS: 36415; 82175; 82570; 83655; 83825 ==

== ENCOUNTER 2021-01-29 23:00 | Emergency (ER) | payer OTHER ==
--- NOTE | 2021-01-30 00:11 | ED ---
General Adult HPI - General Chief complaint: Headache Stated complaint: Pressure in side of head Time Seen by Provider: 01/29/21 23:10 Source: patient Mode of arrival: ambulatory Limitations: no limitations - History of Present Illness Initial comments: 40 year-old male patient presents to the emergency department for evaluation of left sided head pressure, left ear pressure, and left neck pressure. States that this started yesterday. He states today when walking through the grocery store he became "woozy" like lightheaded. States that he checked his blood pressure at the store and it was elevated so he came in to get checked out. He denies any blurred or double vision. Denies chest pain or shortness of breath. Denies any fever or chills. Denies any rash, lip swelling, tongue swelling. Patient denies any recent rash, cough, abdominal pain, nausea, vomiting, diarrhea, constipation, back pain, numbness, tingling, weakness, hematuria, dysuria, urinary urgency, urinary frequency, or any other complaints. - Related Data Home Medications Medication Instructions Recorded Confirmed Testosterone Cypionate 200 mg IM Q14D 12/27/20 12/27/20 [Depo-Testosterone] Previous Rx's Medication Instructions Recorded Meclizine [Antivert] 25 mg PO TID #15 tab 01/30/21 Pseudoephedrine 12Hr [Sudafed 12 120 mg PO Q12H #10 tablet.er 01/30/21 Hour] Allergies Allergy/AdvReac Type Severity Reaction Status Date / Time amoxicillin Allergy Rash/Hives Verified 01/29/21 23:05 ciprofloxacin [From Cipro] Allergy Unknown Verified 01/29/21 23:05 latex Allergy Rash/Hives Verified 01/29/21 23:05 levofloxacin [From Levaquin] Allergy Rapid Verified 01/29/21 23:05 Heart Rate sulfamethoxazole Allergy Abdominal Verified 01/29/21 23:05 [From Bactrim] Pain. LIGHT SENSITIVITY. trimethoprim [From Bactrim] Allergy Abdominal Verified 01/29/21 23:05 Pain. LIGHT SENSITIVITY. Review of Systems ROS Statement: Those systems with pertinent positive or pertinent negative responses have been documented in the HPI. ROS Other: All systems not noted in ROS Statement are negative. Past Medical History Past Medical History: Hypertension Additional Past Medical History / Comment(s): ANEMIA History of Any Multi-Drug Resistant Organisms: None Reported Past Surgical History: Orthopedic Surgery Additional Past Surgical History / Comment(s): Nasal, hand surgery Past Psychological History: No Psychological Hx Reported Smoking Status: Never smoker Past Alcohol Use History: Occasional Past Drug Use History: None Reported General Exam Limitations: no limitations General appearance: alert, in no apparent distress, other (This is a well- developed, well-nourished adult male patient in no acute distress. Vital signs upon presentation are temperature 98.2F, pulse 80, respirations 18, blood pressure 162/93, pulse ox 98% on room air.) Eye exam: Present: normal appearance, PERRL, EOMI. Absent: scleral icterus, conjunctival injection, nystagmus, periorbital swelling ENT exam: Present: normal oropharynx, mucous membranes moist. Absent: TM's normal bilaterally (The right tympanic membrane is bulging, presence of bubbles consistent with serous otitis media.) Respiratory exam: Present: normal lung sounds bilaterally. Absent: respiratory distress, wheezes, rales, rhonchi, stridor Cardiovascular Exam: Present: regular rate, normal rhythm, normal heart sounds. Absent: systolic murmur, diastolic murmur, rubs, gallop, clicks GI/Abdominal exam: Present: soft, normal bowel sounds. Absent: distended, ten derness, guarding, rebound, rigid Neurological exam: Present: alert, oriented X3, CN II-XII intact Expanded Speech: Present: fluid speech Cranial nerves: EOM's Intact: Normal, Tongue Deviation: Normal Motor strength exam: RUE: 5, LUE: 5, RLE: 5, LLE: 5 Psychiatric exam: Present: normal affect, normal mood Skin exam: Present: warm, dry, intact, normal color. Absent: rash Course Vital Signs 01/29/21 01/30/21 23:02 00:27 Temperature 98.3 F 97.6 F Pulse Rate 80 69 Respiratory 18 16 Rate Blood Pressure 162/93 133/87 O2 Sat by Pulse 98 99 Oximetry Medical Decision Making - Medical Decision Making 40 year-old male patient presents to the emergency department today for evaluation of left sided head pressure, left ear pressure, and left neck pressure. Physical exam did reveal left tympanic membrane bulging, bubbles behind TM, no erythema. This is constistent with serous otitis media and possible eustachian tube dysfunction. He was otherwise neurologically intact. I did offer to give pseudophedrine and meclizine for relief of symptoms. He declined receiving the medication here, but will take a prescription. Recomme nded chewing gum. He does have an appointment with ENT in 3 days. He is instructed to follow-up with his primary care physician for recheck in 1-2 days. Return parameters discussed in detail. He verbalizes understanding and agrees with this plan. Case discussed with my attending Dr. Williamson. Disposition Clinical Impression: Eustachian tube dysfunction, Fluid level behind tympanic membrane of left ear, Lightheaded Disposition: HOME SELF-CARE Condition: Good Instructions (If sedation given, give patient instructions): Serous Otitis Media (ED) Additional Instructions: Take medications as directed. Follow-up with the ENT specialist as you have pamela gallagher. Follow up with your primary care physician for recheck in 1-2 days. Return to the emergency department for any new, worsening, or concerning symptoms. Prescriptions: Meclizine [Antivert] 25 mg PO TID #15 tab Pseudoephedrine 12Hr [Sudafed 12 Hour] 120 mg PO Q12H #10 tablet.er Is patient prescribed a controlled substance at d/c from ED?: No Referrals: Coy Gupta MD [Primary Care Provider] - 1-2 days Time of Disposition: 00:11
[2021-01-30 00:34] VITALS: BP 133/87; PULSE 69; RESP 16; TEMP 97.6
== END 2021-01-30 00:28 | disposition home or self-care (01) ==
LOC: EC 23:00
DX: H69.92 Unspecified Eustachian tube disorder, left ear (principal); R42 Dizziness and giddiness; I10 Essential (primary) hypertension; Z88.1 Allergy status to other antibiotic agents; Z88.2 Allergy status to sulfonamides; Z91.040 Latex allergy status
CPT/HCPCS: 99283

== ENCOUNTER → 2021-02-17 | Outpatient (CLI) | payer OTHER ==
--- NOTE | 2021-02-17 08:15 | CT ---
EXAMINATION TYPE: CT chest wo con DATE OF EXAM: 02/17/2021 COMPARISON: Chest x-ray December 27, 2020 HISTORY: Dyspnea for nearly one year. CT DLP: 1135.3 mGycm. Automated Exposure Control for Dose Reduction was Utilized. TECHNIQUE: CT scan of the thorax is performed without IV contrast. FINDINGS: LUNGS: The lungs are grossly clear, there is no concerning parenchymal mass or nodule identified. No significant fibrotic change. No focal consolidation. There is no pleural effusion or pneumothorax se en. The tracheobronchial tree is patent. MEDIASTINUM: Lack of IV contrast is noted to limit evaluation for mediastinal and especially hilar ad enopathy. There are no definitive greater than 1 cm hilar or mediastinal lymph nodes. No cardiomega ly or pericardial effusion is seen. OTHER: Slight scoliotic curvature. Liver diffusely low dense consistent with mild fatty infiltration. IMPRESSION: No significant acute or chronic pulmonary process.
== END | disposition home or self-care (01) ==
LOC: RADCTMAIN 07:03
PROVIDERS: ATTEND Internal Medicine Pulmonary Disease
DX: R06.00 Dyspnea, unspecified (principal)
CPT/HCPCS: 71250

== ENCOUNTER → 2021-02-17 | Outpatient (CLI) | payer OTHER ==
[2021-02-17 16:02] LABS: HCT 48.5 % (39.6-50.0); HGB 15.6 g/dL (13.0-17.0); MCH 29.8 pg (27.0-32.0); MCHC 32.2 g/dL (32.0-37.0); MCV 92.6 fL (80.0-97.0); Mean Platelet Volume 13.5 fL (9.5-12.2); Platelet Count 195 X 10*3/uL (140-440); RBC 5.24 X 10*6/uL (4.40-5.60); WBC 7.14 X 10*3/uL (4.50-10.00)
[2021-02-17 18:26] LABS: Anti-DNA, DS unit <1.0 IU/mL; DNA Double-Stranded NEGATIVE (NEGATIVE)
[2021-02-17 18:47] LABS: C Reactive Protein 0.8 mg/dL (0.0-0.8)
[2021-02-17 19:01] LABS: Folate, Serum 10.6 ng/mL
[2021-02-17 20:02] LABS: Erythrocyte Sedimentation Rate 6 mm/Hr (0-15)
== END | disposition home or self-care (01) ==
LOC: LABWHC1 07:24
PROVIDERS: ATTEND Family Medicine
DX: I10 Essential (primary) hypertension (principal); B89 Unspecified parasitic disease; Z79.899 Other long term (current) drug therapy
CPT/HCPCS: 36415; 82607; 82746; 83735; 85027; 85652; 86038; 86140; 86225

== ENCOUNTER 2021-04-11 23:04 | Emergency (ER) | payer OTHER ==
[2021-04-11 23:14] VITALS: BP 162/100; PULSE 100; RESP 17; TEMP 98.6
--- NOTE | 2021-04-11 23:24 | ED ---
ENT HPI - General Chief complaint: ENT Stated complaint: Throat/neck pain Time Seen by Provider: 04/11/21 23:20 Source: patient, RN notes reviewed, old records reviewed Mode of arrival: ambulatory Limitations: no limitations - History of Present Illness Initial comments: This is a 41-year-old male to the ER today. Patient presents today for evaluation regards to sore throat. Patient states he has had sore throats in the past this feels different feels worse. No factors no fevers. Able to move neck without difficulty and no recent trauma. Patient is no medical history taking medications MD complaint: sore throat -: hour(s) Location: throat Severity: moderate Severity scale (1-10): 5 Quality: aching Consistency: intermittent Improves with: none Worsens with: swallowing Associated Symptoms: cough, sore throat - Related Data Home Medications Medication Instructions Recorded Confirmed Testosterone Cypionate 200 mg IM Q14D 12/27/20 12/27/20 [Depo-Testosterone] Previous Rx's Medication Instructions Recorded Meclizine [Antivert] 25 mg PO TID #15 tab 01/30/21 Pseudoephedrine 12Hr [Sudafed 12 120 mg PO Q12H #10 tablet.er 01/30/21 Hour] Azithromycin [Zithromax Z-pack (6 0 mg PO DIRECTED #1 packet 04/12/21 tabs)] Allergies Allergy/AdvReac Type Severity Reaction Status Date / Time amoxicillin Allergy Rash/Hives Verified 04/11/21 23:14 ciprofloxacin [From Cipro] Allergy Unknown Verified 04/11/21 23:14 latex Allergy Rash/Hives Verified 04/11/21 23:14 levofloxacin [From Levaquin] Allergy Rapid Verified 04/11/21 23:14 Heart Rate sulfamethoxazole Allergy Abdominal Verified 04/11/21 23:14 [From Bactrim] Pain. LIGHT SENSITIVITY. trimethoprim [From Bactrim] Allergy Abdominal Verified 04/11/21 23:14 Pain. LIGHT SENSITIVITY. Review of Systems ROS Statement: Those systems with pertinent positive or pertinent negative responses have been documented in the HPI. ROS Other: All systems not noted in ROS Statement are negative. Past Medical History Past Medical History: Hypertension Additional Past Medical History / Comment(s): ANEMIA History of Any Multi-Drug Resistant Organisms: None Reported Past Surgical History: Orthopedic Surgery Additional Past Surgical History / Comment(s): Nasal, hand surgery Past Psychological History: No Psychological Hx Reported Smoking Status: Never smoker Past Alcohol Use History: Occasional Past Drug Use History: None Reported General Exam General appearance: alert, in no apparent distress Head exam: Present: atraumatic, normocephalic, normal inspection Eye exam: Present: normal appearance, PERRL, EOMI. Absent: scleral icterus, conjunctival injection, periorbital swelling ENT exam: Present: normal exam, mucous membranes moist Neck exam: Present: normal inspection. Absent: tenderness, meningismus, lymphadenopathy Respiratory exam: Present: normal lung sounds bilaterally. Absent: respiratory distress, wheezes, rales, rhonchi, stridor Cardiovascular Exam: Present: regular rate, normal rhythm, normal heart sounds. Absent: systolic murmur, diastolic murmur, rubs, gallop, clicks GI/Abdominal exam: Present: soft, normal bowel sounds. Absent: distended, tenderness, guarding, rebound, rigid Extremities exam: Present: normal inspection, full ROM, normal capillary refill. Absent: tenderness, pedal edema, joint swelling, calf tenderness Back exam: Present: normal inspection Neurological exam: Present: alert, oriented X3, CN II-XII intact Psychiatric exam: Present: normal affect, normal mood Skin exam: Present: warm, dry, intact, normal color. Absent: rash Course Vital Signs 04/11/21 23:11 Temperature 98.6 F Pulse Rate 100 Respiratory 17 Rate Blood Pressure 162/100 O2 Sat by Pulse 98 Oximetry - Reevaluation(s) Reevaluation #1: 04/11/21 23:24 Medical records reviewed Reevaluation #2: 04/12/21 00:36 Patient is in no distress able to breathe and he without difficulty Reevaluation #3: 04/12/21 00:36 Patient informed results and questions answered Medical Decision Making - Medical Decision Making 41 male DEL with anterior cervical lymphadenopathy, patient was take anti- inflammatories at home placed on antibiotics to cure possible underlying pharyngitis and patient can be discharged home - Lab Data Result diagrams: 04/11/21 23:50 04/11/21 23:50 Lab Results 04/11/21 04/11/21 Range/Units 23:50 23:50 WBC 8.7 (3.8-10.6) k/uL RBC 5.41 (4.30-5.90) m/uL Hgb 16.6 (13.0-17.5) gm/dL Hct 49.4 (39.0-53.0) % MCV 91.3 (80.0-100.0) fL MCH 30.7 (25.0-35.0) pg MCHC 33.7 (31.0-37.0) g/dL RDW 12.3 (11.5-15.5) % Plt Count 169 (150-450) k/uL MPV 10.1 Neutrophils % 73 % Lymphocytes % 19 % Monocytes % 4 % Eosinophils % 2 % Basophils % 1 % Neutrophils # 6.3 (1.3-7.7) k/uL Lymphocytes # 1.7 (1.0-4.8) k/uL Monocytes # 0.4 (0-1.0) k/uL Eosinophils # 0.2 (0-0.7) k/uL Basophils # 0.1 (0-0.2) k/uL Sodium 138 (137-145) mmol/L Potassium 4.1 (3.5-5.1) mmol/L Chloride 104 (98-107) mmol/L Carbon Dioxide 24 (22-30) mmol/L Anion Gap 10 mmol/L BUN 16 (9-20) mg/dL Creatinine 0.86 (0.66-1.25) mg/dL Est GFR (CKD-EPI)AfAm >90 (>60 ml/min/1.73 sqM) Est GFR (CKD-EPI)NonAf >90 (>60 ml/min/1.73 sqM) Glucose 103 H (74-99) mg/dL Calcium 9.9 (8.4-10.2) mg/dL Phosphorus 3.7 (2.5-4.5) mg/dL Magnesium 2.0 (1.6-2.3) mg/dL Total Bilirubin 0.8 (0.2-1.3) mg/dL AST 33 (17-59) U/L ALT 37 (4-49) U/L Alkaline Phosphatase 94 (38-126) U/L C-Reactive Protein 1.8 H (<1.0) mg/dL Total Protein 7.9 (6.3-8.2) g/dL Albumin 4.6 (3.5-5.0) g/dL - EKG Data -: EKG Interpreted by Me (EKG is sinus rhythm of 91 DE 138 QRS 108 QTc 467) - Radiology Data Radiology results: report reviewed (CT soft tissue neck does show cervical lymphadenopathy), image reviewed Disposition Clinical Impression: Sore throat, Lymphadenopathy, Cervical lymphadenopathy Disposition: HOME SELF-CARE Condition: Good Instructions (If sedation given, give patient instructions): Lymphadenopathy (ED), Pharyngitis (ED) Prescriptions: Azithromycin [Zithromax Z-pack (6 tabs)] 0 mg PO DIRECTED #1 packet Is patient prescribed a controlled substance at d/c from ED?: No Referrals: Coy Gupta MD [Primary Care Provider] - 1-2 days
[2021-04-11] MEDS ORDERED: SODIUM CHLORIDE 0.9% 1,000 ML IV STA (23:44)
[2021-04-11] MEDS ORDERED: KETOROLAC 15 MG/ML 1 ML VIAL IVP STA (23:45)
[2021-04-12 00:09] LABS: Basophils # (A) 0.1 k/uL (0-0.2); Basophils % (A) 1 %; Eosinophils # (A) 0.2 k/uL (0-0.7); Eosinophils % (A) 2 %; HCT 49.4 % (39.0-53.0); HGB 16.6 gm/dL (13.0-17.5); Lymphocytes # (A) 1.7 k/uL (1.0-4.8); Lymphocytes % (A) 19 %; MCH 30.7 pg (25.0-35.0); MCHC 33.7 g/dL (31.0-37.0); MCV 91.3 fL (80.0-100.0); Mean Platelet Volume 10.1; Monocytes # (A) 0.4 k/uL (0-1.0); Monocytes % (A) 4 %; Neutrophils # (A) 6.3 k/uL (1.3-7.7); Neutrophils % (A) 73 %; Platelet Count 169 k/uL (150-450); RBC 5.41 m/uL (4.30-5.90); RDW 12.3 % (11.5-15.5); WBC 8.7 k/uL (3.8-10.6)
--- NOTE | 2021-04-12 00:22 | CT ---
EXAMINATION TYPE: CT soft tissue neck wo con DATE OF EXAM: 04/12/2021 COMPARISON: None HISTORY: ANTERIOR NECK SWELLING CT DLP: 749.8 mGycm Automated exposure control for dose reduction was used. Images obtained from the top of the orbits to the aortic arch without contrast. Superior mediastinum appears normal. There is normal branching pattern of the great vessels on the ao rtic arch. Thyroid gland is symmetric. The submandibular salivary glands are symmetric. Parotid gland s are symmetric. There are bilateral multiple anterior triangle cervical lymph nodes that measure up to 1.5 cm. Epiglottis appears normal. The tonsils and adenoids appear normal. There is normal aeration of the pa ranasal sinuses. The tongue appears normal. Prevertebral soft tissues are intact. Cervical vertebra have normal alignm ent. There is no compression fracture. Facet joints are intact. There is no evidence of pharyngeal ma ss. IMPRESSION: There are some bilateral anterior triangle cervical lymph nodes up to 1.5 cm. No evidence of pharynge al mass. Normal epiglottis.
[2021-04-12 00:28] LABS: ALT 37 U/L (4-49); AST 33 U/L (17-59); African American GFR (CKD) >90 (>60 ml/min/1.73 sqM); Albumin 4.6 g/dL (3.5-5.0); Alkaline Phosphatase 94 U/L (38-126); Anion Gap 10 mmol/L; Blood Urea Nitrogen 16 mg/dL (9-20); C Reactive Protein 1.8 mg/dL (<1.0); Calcium 9.9 mg/dL (8.4-10.2); Carbon Dioxide 24 mmol/L (22-30); Chloride 104 mmol/L (98-107); Glucose 103 mg/dL (74-99); Non-African American GFR(CKD) >90 (>60 ml/min/1.73 sqM); Phosphorus 3.7 mg/dL (2.5-4.5); Potassium 4.1 mmol/L (3.5-5.1); Sodium 138 mmol/L (137-145); Total Bilirubin 0.8 mg/dL (0.2-1.3); Total Protein 7.9 g/dL (6.3-8.2)
[2021-04-12] MEDS ORDERED: DEXAMETHASONE SOD PHOSPHATE 10 MG/ML 1 ML VIAL IV STA (00:35)
[2021-04-12] MEDS ORDERED: AZITHROMYCIN 500 MG TAB PO STA (00:35)
== END 2021-04-12 00:55 | disposition home or self-care (01) ==
LOC: EC 23:04
DX: J02.9 Acute pharyngitis, unspecified (principal); R59.0 Localized enlarged lymph nodes; I10 Essential (primary) hypertension; Z88.1 Allergy status to other antibiotic agents; Z88.2 Allergy status to sulfonamides; Z91.040 Latex allergy status
CPT/HCPCS: 36415; 70490; 80053; 83735; 84100; 84443; 84484; 85025; 86140; 93005; 96360; 99284

== ENCOUNTER → 2021-04-19 | Outpatient (CLI) | payer OTHER | END | disposition home or self-care (01) | LOC: LABWHC1 16:04 | PROVIDERS: ATTEND Family Medicine | DX: I10 Essential (primary) hypertension (principal); Z79.899 Other long term (current) drug therapy | CPT/HCPCS: 36415; 82306 ==

== ENCOUNTER → 2021-12-14 | Outpatient (CLI) | payer OTHER ==
--- NOTE | 2021-12-14 08:41 | CT ---
EXAMINATION TYPE: CT chest wo con DATE OF EXAM: 12/14/2021 INDICATION: Covid Fibrosis CT DLP: 665.3 mGy.cm Automated Exposure Control for Dose Reduction was Utilized. TECHNIQUE AND CONTRAST: CT scan of the chest without IV contrast administration. COMPARISON: CT dated 02/17/2021 FINDINGS: Newly seen bilateral pulmonary fine reticulations, subtle groundglass opacities and mild fibrotic kai nges, demonstrating an irregular distribution, not appreciated in January 2021 CT scan. This could be related to Post COVID 19 infection fibrotic changes. No ty pulmonary consolidation, traction bronc hiectasis or honeycombing. Slight mosaic-like attenuation of the lungs. Patent trachea and main bronchi. No pleural or pericardial effusion. No gross cardiomegaly. The ascen ding aorta measures 3.6 cm and the pulmonary trunk measures 2.8 cm. No pathologically enlarged lymph nodes in the chest. Unremarkable upper abdomen. No aggressive bone lesion. IMPRESSION: Diffuse irregular nonspecific bilateral pulmonary mild fibrotic changes as detailed above, not apprec iated in January 2021 CT scan. This could represent sequela of previous COVID-19 infection. Recommend clinical correlation, correlation with pulmonary function tests and further workup. Follow-up CT scan in 6-12 months can be considered for reassessment.
== END | disposition home or self-care (01) ==
LOC: RADCTMAIN 07:08
PROVIDERS: ATTEND Family Medicine
DX: J84.10 Pulmonary fibrosis, unspecified (principal)
CPT/HCPCS: 71250

== ENCOUNTER → 2022-03-04 | Outpatient (CLI) | payer OTHER ==
--- NOTE | 2022-03-04 15:09 | US ---
EXAMINATION TYPE: US carotid duplex BILAT DATE OF EXAM: 03/04/2022 COMPARISON: NONE CLINICAL HISTORY: I65.29 COROTID STENOSIS. lightheaded, imbalance TECHNIQUE: Carotid duplex ultrasound examination. Indirect Doppler criteria was utilized. 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 Mildly increased velocities bilateral ECA's IMPRESSION: 1. Atheromatous plaquing without significant flow-limiting stenosis within the common and internal carotid arteries. 2. Bilateral external carotid arteries have elevated velocities suggestive for moderate stenosis betw een 50 and 69%. Criteria for Assigning % of Stenosis / Diameter reduction (Estimation based on the indirect measurements of the internal carotid artery velocities (ICA PSV). 1. Normal (no stenosis)=ICA PSV < 125 cm/s: ratio < 2.0: ICA EDV<40 cm/s. 2. Less than 50% stenosis=ICA PSV < 125 cm/s: ratio < 2.0: ICA EDV<40 cm/s. 3. 50 to 69% stenosis=ICA PSV of 125 to 230 cm/s: ration 2.0 ? 4.0: ICA EDV 40-100 cm/s. 4. Greater than 70% stenosis to near occlusion= ICA PSV > 230 cm/s: ratio > 4.0: ICA EDV > 100 cm/s. 5. Near occlusion= ICA PSV velocities may be low or undetectable: variable ratio and ICA EDV. 6. Total occlusion=unable to detect flow.
== END | disposition home or self-care (01) ==
LOC: RADUSWWP 14:16
PROVIDERS: ATTEND Psychiatry & Neurology Neurology
DX: I65.29 Occlusion and stenosis of unspecified carotid artery (principal)
CPT/HCPCS: 93880

== ENCOUNTER → 2022-07-08 | Outpatient (CLI) | payer OTHER ==
--- NOTE | 2022-07-09 04:49 | MR ---
EXAMINATION TYPE: MR neck wo con DATE OF EXAM: 07/08/2022 COMPARISON: None HISTORY: Anesthesia of skin, numbness of hard palate and left cheek/left side of face numbness, cachorro ce issues Multiplanar multiecho imaging of the neck performed with no contrast. There is no evidence of a posterior fossa mass. Cerebellum and brainstem appear normal. No evidence o f orbital mass. There is a 1.5 cm mucous retention cyst in the left side sphenoid sinus. Internal aud itory canals appear normal. No evidence of cerebellopontine angle mass. The tongue appears normal. Epiglottis appears normal. The parotid glands are symmetric. The submandib ular salivary glands are symmetric. Prevertebral soft tissues are intact. No evidence of any signific ant cervical adenopathy. Mandible is intact. The superior mediastinum is partly visualized and unrema rkable. Thyroid gland is symmetric. Visualized trachea appears normal. No evidence of pharyngeal mass . There are scattered cervical lymph nodes that measure up to 13 mm. IMPRESSION: No significant abnormality in the MR scan of the neck.
== END | disposition home or self-care (01) ==
LOC: RADMRIMAIN 20:30
PROVIDERS: ATTEND Otolaryngology Facial Plastic Surgery
DX: R20.0 Anesthesia of skin (principal)
CPT/HCPCS: 70540

== ENCOUNTER → 2023-05-04 | Outpatient (CLI) | payer SELFPAY ==
[2023-05-04 16:21] LABS: Immunoglobulin M 64.1 mg/dL (40.0-280.0)
== END | disposition home or self-care (01) ==
LOC: LABWHC1 09:49
PROVIDERS: ATTEND Physician Assistant
DX: G60.9 Hereditary and idiopathic neuropathy, unspecified (principal)
CPT/HCPCS: 36415; 82607; 84207; 86334